=== PATIENT | female | born 2000 | race African-American/Black ===

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

== ENCOUNTER 2019-07-31 06:27 | Emergency (ER) | payer BC, MEDICAID ==
[~2019-07-31] VITALS: Ht 162.6 cm; Wt 73.0 kg
[2019-07-31] MEDS ORDERED: KETOROLAC 30MG/ML VIAL IM ONE (07:45)
[2019-07-31 08:07] VITALS: BP 132/78
== END 2019-07-31 08:10 | disposition home or self-care (01) ==
LOC: ER 06:27
DX: R51 Headache (principal); F41.9 Anxiety disorder, unspecified; Z86.59 Personal history of other mental and behavioral disorders
CPT/HCPCS: 96372; 99283; J1885